=== PATIENT | male | born 1960 | race African-American/Black ===

== ENCOUNTER 2019-11-19 21:08 | Emergency (ER) | payer OTHER ==
[2019-11-19 21:14] VITALS: TEMP 97.9; BMI 25.8
--- NOTE | 2019-11-19 21:28 | PDOC ---
History of Present Illness - General Chief Complaint: Pain Stated Complaint: ABD PAIN Time Seen by Provider: 11/19/19 21:27 History Source: Patient - History of Present Illness Initial Comments: 11/19/19 22:17 Mr. Zaldivar is a 59 y/o man w/no PMH p/w one day of acute abdominal pain radiating to his back. He reports waking up with pain in his lower abdomen, 8/10, constant, worse with po intake, aching pain, radiating to his back. He reports that this is different that other low back pain that he has felt. He reports x3 nbnb vomiting, x3 watery non-bloody diarrhea over the course of the day. He reports drinking approx 3 drinks of alcohol last night. He reports drinking one beer daily. He presented to [facility] today for EtOH detox and was told at that time there were no beds available. Past History - Past Medical History Allergies/Adverse Reactions: Allergies Allergy/AdvReac Type Severity Reaction Status Date / Time No Known Allergies Allergy Verified 11/19/19 21:14 Home Medications: Ambulatory Orders Allopurinol [Zyloprim -] 100 mg PO DAILY 05/14/18 Amlodipine Besylate 5 mg PO DAILY 05/14/18 Atorvastatin Ca [Lipitor] 20 mg PO HS 05/14/18 Cyclobenzaprine HCl [Flexeril 10 mg] 10 mg PO BID PRN 05/14/18 Ergocalciferol (Vitamin D2) [Vitamin D2] 50,000 unit PO Q7D 05/14/18 Ibuprofen [Motrin -] 400 mg PO TID PRN 05/14/18 Meclizine HCl [Antivert -] 25 mg PO TID 05/14/18 Naltrexone HCl 50 mg PO DAILY #8 tablet 05/23/18 Naltrexone HCl 50 mg PO DAILY #14 tablet 08/26/18 Naltrexone HCl 50 mg PO DAILY #30 tablet 09/30/18 Naltrexone HCl [Revia -] 50 mg PO DAILY #14 tablet 05/20/19 Naltrexone HCl 50 mg PO DAILY #14 tablet 06/03/19 Naltrexone HCl [Revia -] 50 mg PO DAILY #30 tablet 06/24/19 Omeprazole 40 mg PO DAILY 14 Days #28 tablet. 11/20/19 Anemia: No Asthma: No Cancer: No Cardiac Disorders: No CVA: No COPD: No CHF: No Dementia: No Diabetes: No GI Disorders: No Disorders: No HTN: No Hypercholesterolemia: No Kidney Stones: No Liver Disease: No Seizures: No Thyroid Disease: No - Surgical History Lung Surgery: Yes (tapped a pleural effusion) - Reproductive History Testicular Surgery: No - Psycho Social/Smoking Cessation Hx Smoking History: Never smoked Have you smoked in the past 12 months: No 'Breaking Loose' booklet given: 11/02/13 Hx Alcohol Use: Yes Drug/Substance Use Hx: Yes Substance Use Type: Alcohol, Cocaine Hx Substance Use Treatment: Yes (detox, rehab) Review of Systems - Review of Systems Able to Perform ROS?: Yes Comments:: 11/19/19 22:26 GENERAL/CONSTITUTIONAL: No fever or chills. No weakness. HEAD, EYES, EARS, NOSE AND THROAT: No change in vision. No ear pain or discharge. No sore throat. CARDIOVASCULAR: No chest pain or shortness of breath RESPIRATORY: No cough, wheezing, or hemoptysis. GASTROINTESTINAL: Nausea, vomiting, diarrhea, abdominal pain. No constipation. GENITOURINARY: No dysuria, frequency, or change in urination. MUSCULOSKELETAL: No joint or muscle swelling or pain. No neck or back pain. SKIN: No rash NEUROLOGIC: No headache, vertigo, loss of consciousness, or change in strength/sensation. ENDOCRINE: No increased thirst. No abnormal weight change HEMATOLOGIC/LYMPHATIC: No anemia, easy bleeding, or history of blood clots. ALLERGIC/IMMUNOLOGIC: No hives or skin allergy. *Physical Exam - Vital Signs Last Vital Signs Temp Pulse Resp BP Pulse Ox 97.9 F 98 H 18 119/83 99 11/19/19 21:10 11/19/19 21:10 11/19/19 21:10 11/19/19 21:10 11/19/19 21:10 - Physical Exam 11/19/19 22:26 GENERAL: Awake, alert, and fully oriented HEAD: No signs of trauma, normocephalic, atraumatic EYES: PERRLA, EOMI, sclera anicteric, conjunctiva clear ENT: Auricles normal inspection, hearing grossly normal, nares patent, oropha rynx clear without exudates. Moist mucosa NECK: Normal ROM, supple, no lymphadenopathy, JVD, or masses LUNGS: No distress, speaks full sentences, clear to auscultation bilaterally HEART: Regular rate and rhythm, normal S1 and S2, no murmurs, rubs or gallops, peripheral pulses normal and equal bilaterally. ABDOMEN: RLQ, RUQ tenderness. Soft, normoactive bowel sounds. No guarding, no rebound. No masses EXTREMITIES : Normal inspection, Normal range of motion, no edema. No clubbing or cyanosis NEUROLOGICAL: Cranial nerves II through XII grossly intact. Normal speech, normal gait, no focal sensorimotor deficits SKIN: Warm, Dry, normal turgor, no rashes or lesions noted Heart Score/ECG Review - ECG Intrepretation Rhythm: Regular Rhythm - [place]: Normal - QRS Measured at (milliseconds): 100 - ST and T Comment:: QTc - 453 - ECG Impressions Normal ECG: Yes Non-specific ST Elevation: No Ischemic Changes: No ED Treatment Course - LABORATORY CBC & Chemistry Diagram: 11/19/19 22:00 11/19/19 22:00 Medical Decision Making - Medical Decision Making 11/19/19 22:27 59M w/no PMH p/w one day of abdominal pain radiating to back alongside N/V/D. Ddx includes pancreatitis given EtOH use, appendicitis, gallbladder pathology. Aortic aneurysm also possible given radiation to back. Plan: CBC CMP Lipase Cardiac Profile EKG CXR Mag Banana bag 1L LR Acetaminophen 1g Morphine 4mg for pain CT abdomen/pelvis w/contrast Dispo: Pending 11/20/19 01:43 Lipase - negative CBC - wnl CMP - AST 92 ALT 63 Troponin - negative Mag - wnl CT - notable for duodenitis. No other acute process. Plan for viscous lidocaine, maalox. Patient tolerating po without difficulty. Plan for discharge with Omeprazole as well as close GI, PCP follow up. Discharge - Discharge Information Problems reviewed: Yes Clinical Impression/Diagnosis: Duodenitis Condition: Stable Disposition: HOME - Admission No - Additional Discharge Information Prescriptions: Omeprazole 40 mg PO DAILY 14 Days #28 tablet. - Follow up/Referral Referrals: Arcadio Zamora [Primary Care Provider] - Vanesa Barry MD [Staff Physician] - - Patient Discharge Instructions Patient Printed Discharge Instructions: DI for Duodenitis Additional Instructions: You were seen in the ER for abdominal pain. Your bloodwork was normal. Your symptoms improved with medication. Your CT scan showed some swelling around the duodenum - the first part of your intestines after your stomach. We are prescribing you a medication called omeprazole to help with stomach acid that can help the symptoms caused by this. Be sure to take this medication as directed, two pills daily for 14 days. We are also giving you follow up with a [employer] (intestine doctor). Be sure to call to make an appointment as soon as possible. Please be sure to follow up with your primary care provider as soon as possible, in the next 2-3 days. There are currently no beds available at the detox facility. If you are interested in detox, try going back first thing in the morning at 7AM when they open. Return to the ER if you develop intracta ble pain, intractable vomiting, chest pain, or are unable to eat due to uncontrollable vomiting. - Post Discharge Activity
[2019-11-19] MEDS ORDERED: LACTATED RINGERS SOLUTION 1000 ML INFUS.BAG IV ONE (21:44)
[2019-11-19] MEDS ORDERED: ACETAMINOPHEN 1000 MG/100 ML VIAL (NON FORMULARY) IVPB ONE (21:45)
[2019-11-19] MEDS ORDERED: FOLIC ACID INJECTION - 1 MG, THIAMINE HCL 100 MG, MULTIVIT INJECTION ADULT 10 ML in SOD... IVPB ONE (21:51)
[2019-11-19] MEDS ORDERED: morphine CARPU-JECT 4 MG/1 ML DISP.SYRIN IVPUSH ONE (21:58)
[2019-11-19] MEDS ORDERED: morphine SULFATE 4 MG/ML VIAL ONE (22:04)
[2019-11-19] MEDS ORDERED: ACETAMINOPHEN INJECTION 100 ML IVPB ONE (22:04)
--- NOTE | 2019-11-19 22:07 | PDOC ---
Documentation entered by Bobby Garcia SCRIBE, acting as scribe for Kerry Nieves DO. Kerry Nieves DO: This documentation has been prepared by the Jose pastor Daniel, SCRIBE, under my direction and personally reviewed by me in its entirety. I confirm that the documentation accurately reflects all work, treatment, procedures, and medical decision making performed by me. Attending Attestation - Resident Resident Name: Eliseo Parrish - ED Attending Attestation I have performed the following: I have examined & evaluated the patient, The case was reviewed & discussed with the resident, I agree w/resident's findings & plan, Exceptions are as noted - HPI HPI: 11/19/19 21:57 The patient is a 59 year old male with no past medical history here today for evaluation of abdominal pain. The patient reports that he has had one day of abdominal pain with associated nausea, 3 episodes of diarrhea, and 3 episodes of vomiting. He initially presented to [facility] for alcohol detox but was sent here due to a lack of beds. Patient denies headache, lightheadedness. Denies fever, chills. Denies chest pain, shortness of breath. Allergies: NKA PCP: Arcadio Zamora - Physicial Exam PE: 11/19/19 21:57 Constitutional: +uncomfortable, appears in pain. Awake, alert, oriented. Head: Normocephalic. Atraumatic Eyes: PERRL. EOMI. Conjunctivae are not pale. ENT: Mucous membranes are moist and intact. Posterior pharynx without exudates or erythema. Uvula midline. Neck: Supple. Full ROM. No lymphadenopathy. Cardiovascular: Regular rate. Regular rhythm. S1, S2 regular. Distal pulses are 2+ and symmetric. Pulmonary/Chest: No evidence of respiratory distress. Clear to auscultation bilaterally No wheezing, rales or rhonchi. Abdominal: +reducible umbilical hernia. +tenderness above the umbilicus across the upper abdomen. Soft and non-distended. No rebound, guarding or rigidity. No organomegaly. No palpable masses. Good bowel sounds. Back: No CVA tenderness. Musculoskeletal: No edema. No cyanosis. No clubbing. Full range of motion in all extremities. Nocalf tenderness. Radial/pedal pulses are intact and 2+ bilaterally Skin: Skin is warm and dry. No petechiae. No purpura. Neurological: Alert and oriented to person, place, and time. Cranial nerves II-XII are grossly intact. Normal speech. Strength is grossly symmetric. No sensory deficits. Psychiatric: Good eye contact. Normal interaction, affect and behavior. - Medical Decision Making 11/19/19 22:05 I, Dr. Kerry Nieves, DO, attest that this document has been prepared under my direction and personally reviewed by me in its entirety. I further attest, that it accurately reflects all work, treatment, procedures and medical decision-making performed by me. a/p: 59yo male with abd pain -pt went to [facility] for detox from etoh, but only drinks about 1 beer a day, yesterday at a [employer] and drank more -abd pain, nausea, 1 episode of loose stool -upper abd pain, no vomiting -hx of hernia repair at the umbilicus - small hernia there -concern for etoh pancreatitis vs etoh gastritis vs biliary colic vs colitis -will send labs, ct abd/pelvis -ivf hydraiton, pain control -will monitor and reassess 11/19/19 23:38 no elevated wbc elevated lft lipase neg pending ct imaging 11/20/19 00:22 CT abdomen pelvis: FINDINGS: There are inflammatory changes of the fat around the proximal duodenum. Proximal duodenal sommers are slightly thickened. This could represent duodenitis or duodenal ulcer disease. Endoscopic evaluation may be helpful. Please note that some of the inflammatory changes are adjacent to the head of the pancreas. Although I believe the inflammation is related to the duodenum, recommend correlation with lipase to exclude associated pancreatitis. Liver is somewhat enlarged. (Liver dome tip not included on the scan). There is a small periumbilical hernia with some omentum but no bowel. No bowel obstruction or inflammation. Left colon diverticulosis. No diverticulitis or colitis. Normal appendix containing some sludge. Prior cholecystectomy. Normal spleen. Normal adrenal glands. Bilateral renal cysts. No acute renal abnormality or urinary tract obstruction. No free intraperitoneal air or free fluid. Enlarged prostate and seminal vesicles. Osseous structures are intact. 11/20/19 00:24 trop neg pt states pain is more tolerable will add gi cocktail 11/20/19 01:08 cxr clear 11/20/19 01:38 pt feeling better tolerated po stable for dc to home with gi follow up Heart Score/ECG Review - ECG Intrepretation Comment:: 11/20/19 00:17 sinus at 61, nl axis, nl interval, t wave inversions v2-4, abnormal ekg
[2019-11-19 22:35] LABS: BASO % 0.8 % (0-2.0); EOS % 0.4 % (0-4.5); HEMATOCRIT 41.8 % (35.4-49); HEMOGLOBIN 14.2 GM/dL (11.7-16.9); LYMPH % 21.4 % (8-40); MCH 28.6 pg (25.7-33.7); MCHC 34.1 g/dl (32.0-35.9); MEAN PLT VOLUME 9.2 fl (7.5-11.1); MONO % 9.2 % (3.8-10.2); NEUT % 68.2 % (42.8-82.8); PLATELET COUNT 420 K/MM3 (134-434); RBC 4.98 M/mm3 (4.00-5.60); RDW 16.2 % (11.9-15.9); WHITE BLOOD COUNT 8.8 K/mm3 (4.0-10.0)
[2019-11-19 23:14] LABS: ALK PHOS 89 U/L (45-117); ANION GAP 6 MMOL/L (8-16); BILIRUBIN,TOTAL 0.9 mg/dL (0.2-1); BLOOD UREA NITROGEN 8.9 mg/dL (7-18); CALCIUM 9.6 mg/dL (8.5-10.1); CHLORIDE 108 mmol/L (98-107); CO2 27 mmol/L (21-32); CREATININE 1.2 mg/dL (0.55-1.3); GLUCOSE,RANDOM 122 mg/dL (74-106); LIPASE 131 U/L (73-393); POTASSIUM 4.8 mmol/L (3.5-5.1); SGOT/AST 92 U/L (15-37); SGPT/ALT 63 U/L (13-61); SODIUM 141 mmol/L (136-145); TOT PROT 7.9 g/dl (6.4-8.2)
[2019-11-20] MEDS ORDERED: MAG HYDROX/AL HYDROX/SIMETH 30 ML UNIT-DOSE CUP PO ONE (00:25)
[2019-11-20] MEDS ORDERED: LIDOCAINE VISCOUS 2% ORAL/TOP 20 ML UNIT-DOSE CUP MM ONE (00:25)
[2019-11-20] MEDS ORDERED: LIDOCAINE VISCOUS 2% ORAL/TOP 20 ML UNIT-DOSE CUP ONE (01:07)
[2019-11-20] MEDS ORDERED: MAG HYDROX/AL HYDROX/SIMETH 30 ML UNIT-DOSE CUP ONE (01:08)
[2019-11-20 02:09] VITALS: BP 120/82; PULSE 90
--- NOTE | 2019-11-20 11:08 | EKG ---
Test Reason : Blood Pressure : / mmHG Vent. Rate : 061 BPM Atrial Rate : 061 BPM P-R Int : 172 ms QRS Dur : 100 ms QT Int : 450 ms P-R-T Axes : 051 019 041 degrees QTc Int : 453 ms NORMAL SINUS RHYTHM NONSPECIFIC T WAVE ABNORMALITY ABNORMAL ECG NO PREVIOUS ECGS AVAILABLE Confirmed by IRENE ROSAS MD ([id number]) on 11/20/2019 11:08:48 AM Referred By: Confirmed By:IRENE ROSAS MD
== END 2019-11-20 02:10 | disposition home or self-care (01) ==
LOC: JER 21:08
PROC: 3E033GC Introduction of Other Therapeutic Substance into Peripheral Vein, Percutaneous Approach (ICD-10-PCS; principal; 2019-11-19)
PROC: 3E033NZ Introduction of Analgesics, Hypnotics, Sedatives into Peripheral Vein, Percutaneous Approach (ICD-10-PCS; 2019-11-19)
DX: K29.80 Duodenitis without bleeding (principal); M54.89 Other dorsalgia; I10 Essential (primary) hypertension; F10.10 Alcohol abuse, uncomplicated
CPT/HCPCS: 36415; 71045-TC-FY; 74177-TC; 80053; 82550; 82553; 83690; 83735; 84484; 85025; 93005; 93010; 96365; 96366; 96375; 99285-25; J0131; J7030; Q9967

== ENCOUNTER 2019-11-20 08:40 | Inpatient (IN) | payer OTHER ==
--- NOTE | 2019-11-20 09:01 | BHS.RME ---
Substance Use & Tx History - Substance Use History Alcohol Substance amount: 4 - 40 oz beers Frequency of use: Daily Substance route: Oral Date of Last Use: 11/19/19 - Last Treatment Where was last treatment: ER (yesterday seen in er after having alcoholic binge at a [employer] party and having abdominal pain. CT of abdomen and one dose of morphine given to him at [facility]. CT showed possible duodenal ulcer and enlarged liver.) Physical/Psych/Mental Status - Behavior General Behavior: Increased activity (restlessness, agitation) Eye Contact: Normal - Cooperativeness Cooperativeness: Cooperative - Thinking Thought Processes: Tight, Logical, Goal Directed Thought content: Future oriented - Physical Health Problems Is patient presently having any pain?: No Does patient presently have any injuries (include location): No Does patient currently have a fever: No Is patient : No CIWA Nausea/Vomitin Muscle Tremors: 2 Anxiety: 4-Mod. Anxious/Guarded Agitation: 3 Paroxysmal Sweats: No Perspiration Orientation: 0-Oriented Tacttile Disturbances: 0-None Auditory Disturbances: 0-None Visual Disturbances: 0-None Headache: 1-Very Mild (moderate withdrawals since been off alcohol for more than 18 hours.) CIWA-Ar Total Score: 16
[2019-11-20 09:40] VITALS: BMI 26.1
--- NOTE | 2019-11-20 10:27 | HP ---
CIWA Score Nausea/Vomitin Muscle Tremors: 2 Anxiety: 4-Mod. Anxious/Guarded Agitation: 3 Paroxysmal Sweats: No Perspiration Orientation: 0-Oriented Tacttile Disturbances: 0-None Auditory Disturbances: 0-None Visual Disturbances: 0-None Headache: 1-Very Mild (moderate withdrawals since been off alcohol for more than 18 hours.) CIWA-Ar Total Score: 16 - Admission Criteria OASAS Guidelines: Admission for Medically Managed Detox: Requires at least one of the followin. CIWA greater than 12 2. Seizures within the past 24 hours 3. Delirium tremens within the past 24 hours 4. Hallucinations within the past 24 hours 5. Acute intervention needed for co occurring medical disorder 6. Acute intervention needed for co occurring psychiatric disorder 7. Severe withdrawal that cannot be handled at a lower level of care (continued vomiting, continued diarrhea, abnormal vital signs) requiring intravenous medication and/or fluids 8. Admitting History and Physical - Admission Chief Complaint: " I want to stop drinking. I want to go to rehab after detox." History of Present Illness: 59 year old male with history of alcohol dependence with withdrawals. He was seen yesterday evening at [facility] but due to the constant nausea, vomitting and diarrhea with abdominal pain, he was sent to [facility] ER. They assessed him and CT of abdomen showed possible duodenal disease/ ulcer and enlarged liver. He was cleared and sent back for detox this morning. He was also given one dose of IV morphine last night which explains his MOP in urine tox. He also in 2002 had a bout pof pleuritis and pleurisy with chest drainage of fluid. PMH: Chronic low back pain from sports trauma, ? Duodenal ulcer/ Enlarged Liver Psurg: None Psych: None He is domiciled in an single occupancy room with drugs in area. He has poor support systems in place but no legal problems. He has already sequelae of chronic alcohol use disorder with possible enlarged liver seen on CT scan yesterday. History Source: Patient Limitations to Obtaining History: No Limitations - Past Medical History Gastrointestinal: Yes: GERD Hepatobiliary: Yes: Other (liver enlargement) - Past Surgical History Past Surgical History: Yes: None - Smoking History Smoking history: Never smoked Have you smoked in the past 12 months: No Aproximately how many cigarettes per day: 0 If you are a former smoker, when did you quit?: 20 yrs ago - Alcohol/Substance Use Hx Alcohol Use: Yes Admission ROS S - HPI Allergies/Adverse Reactions: Allergies Allergy/AdvReac Type Severity Reaction Status Date / Time No Known Allergies Allergy Verified 11/20/19 09:32 Patient History - Patient Medical History Hx Anemia: No Hx Asthma: No Hx Chronic Obstructive Pulmonary Disease (COPD): No Hx Cancer: No Hx Cardiac Disorders: Yes (High cholestrol) Hx Congestive Heart Failure: No Hx Hypertension: Yes Hx Hypercholesterolemia: No Hx Pacemaker: No HX Cerebrovascular Accident: No Hx Seizures: No Hx Dementia: No Hx Diabetes: No Hx Gastrointestinal Disorders: Yes (GERDS) Hx Liver Disease: No Hx Genitourinary Disorders: No Hx Sexually Transmitted Disorders: No Hx Renal Disease (ESRD): No Hx Thyroid Disease: No Hx Human Immunodeficiency Virus (HIV): No Hx Hepatitis C: No Hx Depression: Yes Hx Suicide Attempt: No Hx Bipolar Disorder: No Hx Schizophrenia: No - Patient Surgical History Past Surgical History: Yes Hx Neurologic Surgery: Yes (Vertigo) Hx Cataract Extraction: No Hx Cardiac Surgery: No Hx Lung Surgery: Yes (tapped a pleural effusion) Hx Breast Surgery: No Hx Breast Biopsy: No Hx Abdominal Surgery: No Hx Appendectomy: No Hx Cholecystectomy: No Hx Genitourinary Surgery: No Hx Section: No Hx Orthopedic Surgery: No Anesthesia Reaction: No - PPD History Previous Implant?: Yes Documented Results: Negative w/proof Implanted On Prior [facility] Admission?: Yes Date: 11/04/13 - Smoking Cessation Smoking history: Never smoked Have you smoked in the past 12 months: No Aproximately how many cigarettes per day: 0 If you are a former smoker, when did you quit?: 20 yrs ago Cigars Per Day: 0 Hx Chewing Tobacco Use: No Initiated information on smoking cessation: No - Substances abused Alcohol Substance route: Oral Frequency: Daily Amount used: 40oz amd 6pk beer Age of first use: 14 Date of last use: 11/19/19 Admission Physical Exam S - Vital Signs Vital Signs: Vital Signs - 24 hr 11/20/19 09:37 Temperature 98.0 F Pulse Rate 71 Respiratory 18 Rate Blood Pressure 157/82 - Physical General Appearance: Yes: No Apparent Distress, Nourished, Appropriately Dressed HEENTM: Yes: EOMI, Hearing grossly Normal, Normal ENT Inspection, Normocephalic, Normal Voice, AMITA, Pharynx Normal, Tm's normal Respiratory: Yes: Chest Non-Tender, Lungs Clear, Normal Breath Sounds, No Respiratory Distress, No Accessory Muscle Use Neck: Yes: No masses,lesions,Nodules, Supple, Trachea in good position Breast: Yes: Within Normal Limits Cardiology: Yes: Regular Rhythm, Regular Rate, S1, S2 Abdominal: Yes: Soft, Increased Bowel Sounds, Protuberent, Tenderness, Hepatomegaly (1 fingertip below right costal margin), Other (small umbilical hernia) Back: Yes: Normal Inspection Musculoskeletal: Yes: full range of Motion, Gait Steady, Pelvis Stable Extremities: Yes: Normal Capillary Refill, Normal Inspection, Normal Range of Motion Neurological: Yes: feather cutting machine feeder II-XII NML intact, Fully Oriented, Alert, Motor Strength 5/5, Normal Mood/Affect, Normal Response Integumentary: Yes: Normal Color, Warm - Diagnostic (1) Alcohol dependence with withdrawal Current Visit: Yes Status: Acute (2) Duodenitis Current Visit: Yes Status: Acute (3) HTN (hypertension) Current Visit: Yes Status: Acute Qualifiers: Comment: one meds - sees primary (4) Chronic LBP Current Visit: Yes Status: Chronic Qualifiers: Back pain laterality: unspecified Comment: managed by pcp Screened but not Admitted - Documentation of Visit Screened but not Admitted: No Breathalyzer - Breathalyzer Breathalyzer: 0 Urine Drug Screen - Test Device Lot number: [id number] Expiration date: 08/15/21 - Control Is test valid?: Yes - Results Drug screen NEGATIVE: No Urine drug screen results: MOP-Opiates Inpatient Rehab Admission - Rehab Decision to Admit Inpatient rehab admission?: No
[2019-11-20] MEDS ORDERED: MAGNESIUM HYDROX 2400MG/30ML ORAL SUSPENSION 30 ML CUP PO PRN (10:33)
[2019-11-20] MEDS ORDERED: MAG HYDROX/AL HYDROX/SIMETH 30 ML UNIT-DOSE CUP PO PRN (10:33)
[2019-11-20] MEDS ORDERED: ACETAMINOPHEN 325 MG TABLET (FP) PO PRN ×2 (10:33)
[2019-11-20] MEDS ORDERED: MENTHOL/PHENOL 1 EACH UD MM PRN (10:33)
[2019-11-20] MEDS ORDERED: NICOTINE POLACRILEX 2 MG GUM BUC PRN (10:33)
[2019-11-20] MEDS ORDERED: MAGNESIUM CITRATE 300 ML BOTTLE PO PRN (10:33)
[2019-11-20] MEDS ORDERED: chlordiazePOXIDE HCL 25 MG CAPSULE PO PRN (10:33)
[2019-11-20] MEDS ORDERED: ERGOCALCIFEROL (VIT D2) 50,000 UNIT (1.25 MG) CAPSULE PO SCH (12:05)
[2019-11-20] MEDS ORDERED: ONDANSETRON *ODT* 4 MG TABLET SL ONE (12:05)
[2019-11-20] MEDS: NICOTINE 7 MG/24 HOURS TOPICAL PATCH TD SCH (12:27)
[2019-11-20] MEDS: chlordiazePOXIDE HCL 25 MG CAPSULE PO SCH ×3 (12:27→22:12)
[2019-11-20] MEDS: PANTOPRAZOLE 40 MG TABLET PO SCH (12:27)
[2019-11-20] MEDS: amLODIPine BESYLATE 5 MG TABLET (FP) PO SCH (12:27)
[2019-11-20] MEDS: PRENATAL VITAMINS W/ FOLIC ACID TABLET (FP) PO SCH (12:27)
[2019-11-20] MEDS ORDERED: BISMUTH SUBSALICYLATE 262 MG/15 ML BTL PO PRN (12:49)
[2019-11-20] MEDS: hydrOXYzine PAMOATE 25 MG CAPSULE (FP) PO SCH ×3 (15:09→22:13)
[2019-11-20 15:24] LABS: HEMOGLOBIN 14.1 GM/dL (11.7-16.9); MCH 28.7 pg (25.7-33.7); MCHC 32.8 g/dl (32.0-35.9); MEAN CELL VOLUME 87.4 fl (80-96); MEAN PLT VOLUME 9.5 fl (7.5-11.1); PLATELET COUNT 319 K/MM3 (134-434); RBC 4.92 M/mm3 (4.00-5.60); RDW 16.3 % (11.9-15.9); WHITE BLOOD COUNT 7.3 K/mm3 (4.0-10.0)
[2019-11-20 15:36] LABS: ALBUMIN 3.7 g/dl (3.4-5.0); BILIRUBIN,TOTAL 0.8 mg/dL (0.2-1); BLOOD UREA NITROGEN 7.2 mg/dL (7-18); CALCIUM 8.6 mg/dL (8.5-10.1); CREATININE 0.9 mg/dL (0.55-1.3); TOT PROT 7.2 g/dl (6.4-8.2)
[2019-11-20 15:37] LABS: POTASSIUM 3.6 mmol/L (3.5-5.1)
[2019-11-20] MEDS: THIAMINE HCL 100 MG TABLET (FP) PO SCH (22:12)
[2019-11-20] MEDS: ATORVASTATIN CA 20 MG TABLET (FP) PO SCH (22:12)
[2019-11-20] MEDS: MELATONIN 5 MG TABLETS PO SCH (22:13)
[2019-11-21] MEDS: hydrOXYzine PAMOATE 25 MG CAPSULE (FP) PO SCH ×5 (06:51→22:32)
[2019-11-21] MEDS: chlordiazePOXIDE HCL 25 MG CAPSULE PO SCH ×4 (06:51→22:30)
[2019-11-21] MEDS: PANTOPRAZOLE 40 MG TABLET PO SCH (10:22)
[2019-11-21] MEDS: PRENATAL VITAMINS W/ FOLIC ACID TABLET (FP) PO SCH (10:22)
[2019-11-21] MEDS: NICOTINE 7 MG/24 HOURS TOPICAL PATCH TD SCH (10:22)
[2019-11-21] MEDS: amLODIPine BESYLATE 5 MG TABLET (FP) PO SCH (10:22)
--- NOTE | 2019-11-21 12:02 | PN ---
S CIWA - CIWA Score Nausea/Vomitin Muscle Tremors: 3 Anxiety: 3 Agitation: 3 Paroxysmal Sweats: No Perspiration Orientation: 0-Oriented Tacttile Disturbances: 1-Very Mild Itch/Numbness Auditory Disturbances: 0-None Visual Disturbances: 0-None Headache: 1-Very Mild CIWA-Ar Total Score: 13 BHS Progress Note (SOAP) Subjective: alert,irritable,anxious,interrupted sleep,tremor,tremor,nausea Objective: 11/21/19 12:00 Vital Signs Temperature 98.7 F 11/21/19 09:29 Pulse Rate 104 H 11/21/19 09:29 Respiratory Rate 19 11/21/19 09:29 Blood Pressure 157/99 11/21/19 09:29 O2 Sat by Pulse Oximetry (%) Laboratory Last Values WBC 7.3 K/mm3 (4.0-10.0) 11/20/19 10:55 RBC 4.92 M/mm3 (4.00-5.60) 11/20/19 10:55 Hgb 14.1 GM/dL (11.7-16.9) 11/20/19 10:55 Hct 43.0 % (35.4-49) 11/20/19 10:55 MCV 87.4 fl (80-96) 11/20/19 10:55 MCH 28.7 pg (25.7-33.7) 11/20/19 10:55 MCHC 32.8 g/dl (32.0-35.9) 11/20/19 10:55 RDW 16.3 % (11.9-15.9) H 11/20/19 10:55 Plt Count 319 K/MM3 (134-434) D 11/20/19 10:55 MPV 9.5 fl (7.5-11.1) 11/20/19 10:55 Sodium 144 mmol/L (136-145) 11/20/19 10:55 Potassium 3.6 mmol/L (3.5-5.1) 11/20/19 10:55 Chloride 109 mmol/L (98-107) H 11/20/19 10:55 Carbon Dioxide 24 mmol/L (21-32) 11/20/19 10:55 Anion Gap 12 MMOL/L (8-16) 11/20/19 10:55 BUN 7.2 mg/dL (7-18) 11/20/19 10:55 Creatinine 0.9 mg/dL (0.55-1.3) 11/20/19 10:55 Est GFR (CKD-EPI)AfAm 107.22 11/20/19 10:55 Est GFR (CKD-EPI)NonAf 92.51 11/20/19 10:55 Random Glucose 66 mg/dL (74-106) L 11/20/19 10:55 Calcium 8.6 mg/dL (8.5-10.1) 11/20/19 10:55 Total Bilirubin 0.8 mg/dL (0.2-1) 11/20/19 10:55 AST 62 U/L (15-37) H 11/20/19 10:55 ALT 57 U/L (13-61) 11/20/19 10:55 Alkaline Phosphatase 83 U/L (45-117) 11/20/19 10:55 Total Protein 7.2 g/dl (6.4-8.2) 11/20/19 10:55 Albumin 3.7 g/dl (3.4-5.0) 11/20/19 10:55 RPR Titer Nonreactive (NONREACTIVE) 11/20/19 10:55 Assessment: 11/21/19 12:00 withdrawal symptom Plan: continue detox librium regimen,bgm ,initial glucose is 60mg
[2019-11-21] MEDS: ATORVASTATIN CA 20 MG TABLET (FP) PO SCH (22:30)
[2019-11-21] MEDS: THIAMINE HCL 100 MG TABLET (FP) PO SCH (22:30)
[2019-11-21] MEDS: MELATONIN 5 MG TABLETS PO SCH (22:31)
[2019-11-22] MEDS: hydrOXYzine PAMOATE 25 MG CAPSULE (FP) PO SCH ×5 (06:26→22:38)
[2019-11-22] MEDS: chlordiazePOXIDE HCL 25 MG CAPSULE PO SCH ×4 (06:26→22:37)
[2019-11-22] MEDS: PANTOPRAZOLE 40 MG TABLET PO SCH (10:37)
[2019-11-22] MEDS: PRENATAL VITAMINS W/ FOLIC ACID TABLET (FP) PO SCH (10:37)
[2019-11-22] MEDS: NICOTINE 7 MG/24 HOURS TOPICAL PATCH TD SCH (10:37)
[2019-11-22] MEDS: amLODIPine BESYLATE 5 MG TABLET (FP) PO SCH (10:37)
--- NOTE | 2019-11-22 11:57 | PN ---
S CIWA - CIWA Score Nausea/Vomitin-Mild Nausea/No Vomiting Muscle Tremors: 2 Anxiety: 1-Mildly Anxious Agitation: 2 Paroxysmal Sweats: 2 Orientation: 0-Oriented Tacttile Disturbances: 0-None Auditory Disturbances: 0-None Visual Disturbances: 0-None Headache: 0-None Present CIWA-Ar Total Score: 8 BHS Progress Note (SOAP) Subjective: restless sweats interrupted sleep nausea Objective: 11/22/19 11:56 Vital Signs Temperature 99.1 F 11/22/19 09:27 Pulse Rate 101 H 11/22/19 09:27 Respiratory Rate 20 11/22/19 09:27 Blood Pressure 136/74 11/22/19 09:27 O2 Sat by Pulse Oximetry (%) Laboratory Tests 11/20/19 11/20/19 11/20/19 10:55 10:55 10:55 WBC 7.3 RBC 4.92 Hgb 14.1 Hct 43.0 MCV 87.4 MCH 28.7 MCHC 32.8 RDW 16.3 H Plt Count 319 D MPV 9.5 Sodium 144 Potassium 3.6 Chloride 109 H Carbon Dioxide 24 Anion Gap 12 BUN 7.2 Creatinine 0.9 Est GFR (CKD-EPI)AfAm 107.22 Est GFR (CKD-EPI)NonAf 92.51 POC Glucometer Random Glucose 66 L Calcium 8.6 Total Bilirubin 0.8 AST 62 H ALT 57 Alkaline Phosphatase 83 Total Protein 7.2 Albumin 3.7 RPR Titer Nonreactive 11/22/19 06:28 WBC RBC Hgb Hct MCV MCH MCHC RDW Plt Count MPV Sodium Potassium Chloride Carbon Dioxide Anion Gap BUN Creatinine Est GFR (CKD-EPI)AfAm Est GFR (CKD-EPI)NonAf POC Glucometer 133 Random Glucose Calcium Total Bilirubin AST ALT Alkaline Phosphatase Total Protein Albumin RPR Titer aaox3 ambulating no acute distress Assessment: 11/22/19 11:57 withdrawals Plan: continue detox increase fluids zofran prn
[2019-11-22] MEDS ORDERED: ONDANSETRON *ODT* 4 MG TABLET SL PRN (14:20)
[2019-11-22] MEDS: METHOCARBAMOL 500 MG TABLET PO PRN (21:40)
[2019-11-22] MEDS: IBUPROFEN 400 MG TABLET (FP) PO PRN (21:40)
[2019-11-22] MEDS: MELATONIN 5 MG TABLETS PO SCH (22:37)
[2019-11-22] MEDS: ATORVASTATIN CA 20 MG TABLET (FP) PO SCH (22:37)
[2019-11-22] MEDS: THIAMINE HCL 100 MG TABLET (FP) PO SCH (22:38)
[2019-11-23] MEDS ORDERED: chlordiazePOXIDE HCL 10 MG CAPSULE PO PRN
[2019-11-23] MEDS: METHOCARBAMOL 500 MG TABLET PO PRN (05:57)
[2019-11-23] MEDS: chlordiazePOXIDE HCL 10 MG CAPSULE PO SCH ×4 (05:57→22:14)
[2019-11-23] MEDS: hydrOXYzine PAMOATE 25 MG CAPSULE (FP) PO SCH ×5 (05:57→22:15)
[2019-11-23] MEDS: IBUPROFEN 400 MG TABLET (FP) PO PRN ×2 (05:57→16:16)
[2019-11-23] MEDS: amLODIPine BESYLATE 5 MG TABLET (FP) PO SCH (10:31)
[2019-11-23] MEDS: NICOTINE 7 MG/24 HOURS TOPICAL PATCH TD SCH (10:31)
[2019-11-23] MEDS: PRENATAL VITAMINS W/ FOLIC ACID TABLET (FP) PO SCH (10:31)
[2019-11-23] MEDS: PANTOPRAZOLE 40 MG TABLET PO SCH (10:31)
--- NOTE | 2019-11-23 10:48 | PN ---
S CIWA - CIWA Score Nausea/Vomitin-Mild Nausea/No Vomiting Muscle Tremors: 2 Anxiety: 2 Agitation: 2 Paroxysmal Sweats: No Perspiration Orientation: 0-Oriented Tacttile Disturbances: 1-Very Mild Itch/Numbness Auditory Disturbances: 0-None Visual Disturbances: 0-None Headache: 1-Very Mild CIWA-Ar Total Score: 9 BHS Progress Note (SOAP) Subjective: alert,irritable,anxious,interrupted sleep,pain in the body Objective: 11/23/19 10:47 Vital Signs Temperature 97.7 F 11/23/19 08:38 Pulse Rate 93 H 11/23/19 08:38 Respiratory Rate 18 11/23/19 08:38 Blood Pressure 133/57 L 11/23/19 08:38 O2 Sat by Pulse Oximetry (%) Assessment: 11/23/19 10:48 withdrawal symptom Plan: continue detox librium regimen
[2019-11-23] MEDS: MELATONIN 5 MG TABLETS PO SCH (22:14)
[2019-11-23] MEDS: THIAMINE HCL 100 MG TABLET (FP) PO SCH (22:14)
[2019-11-23] MEDS: ATORVASTATIN CA 20 MG TABLET (FP) PO SCH (22:14)
[2019-11-24] MEDS: hydrOXYzine PAMOATE 25 MG CAPSULE (FP) PO SCH ×5 (05:35→21:28)
[2019-11-24] MEDS: chlordiazePOXIDE HCL 10 MG CAPSULE PO SCH ×2 (05:35→17:29)
[2019-11-24] MEDS: METHOCARBAMOL 500 MG TABLET PO PRN ×2 (05:35→17:29)
[2019-11-24] MEDS: IBUPROFEN 400 MG TABLET (FP) PO PRN ×2 (05:35→17:29)
[2019-11-24] MEDS: amLODIPine BESYLATE 5 MG TABLET (FP) PO SCH (10:16)
[2019-11-24] MEDS: PRENATAL VITAMINS W/ FOLIC ACID TABLET (FP) PO SCH (10:16)
[2019-11-24] MEDS: NICOTINE 7 MG/24 HOURS TOPICAL PATCH TD SCH (10:16)
[2019-11-24] MEDS: PANTOPRAZOLE 40 MG TABLET PO SCH (10:16)
--- NOTE | 2019-11-24 11:23 | PN ---
[facility] CIWA - CIWA Score Nausea/Vomitin-Mild Nausea/No Vomiting Muscle Tremors: 2 Anxiety: 2 Agitation: 2 Paroxysmal Sweats: No Perspiration Orientation: 0-Oriented Tacttile Disturbances: 0-None Auditory Disturbances: 0-None Visual Disturbances: 0-None Headache: 0-None Present CIWA-Ar Total Score: 7 S Progress Note (SOAP) Subjective: alert,irritable,anxious,interrupted sleep Objective: 11/24/19 11:22 Vital Signs Temperature 98.2 F 11/24/19 08:47 Pulse Rate 92 H 11/24/19 08:47 Respiratory Rate 18 11/24/19 08:47 Blood Pressure 134/72 11/24/19 08:47 O2 Sat by Pulse Oximetry (%) 11/24/19 11:22 Assessment: 11/24/19 11:22 withdrawal symptom Plan: continue detoxlibrium regimen,discharge in am
[2019-11-24] MEDS: THIAMINE HCL 100 MG TABLET (FP) PO SCH (21:28)
[2019-11-24] MEDS: ATORVASTATIN CA 20 MG TABLET (FP) PO SCH (21:28)
[2019-11-24] MEDS: MELATONIN 5 MG TABLETS PO SCH (21:40)
[2019-11-25] MEDS ORDERED: chlordiazePOXIDE HCL 10 MG CAPSULE PO ONE (05:00)
[2019-11-25] MEDS: hydrOXYzine PAMOATE 25 MG CAPSULE (FP) PO SCH ×3 (05:54→14:03)
--- NOTE | 2019-11-25 08:25 | DS ---
[facility] Detox Discharge Summary Admission Date: 11/20/19 Discharge Date: 11/25/19 - History Present History: Alcohol Dependence - Physical Exam Results Vital Signs: Vital Signs Temperature 97.7 F 11/25/19 05:35 Pulse Rate 88 11/25/19 05:35 Respiratory Rate 18 11/25/19 05:35 Blood Pressure 137/78 11/25/19 05:35 O2 Sat by Pulse Oximetry (%) Pertinent Admission Physical Exam Findings: Vital Signs Temperature 97.7 F 11/25/19 05:35 Pulse Rate 88 11/25/19 05:35 Respiratory Rate 18 11/25/19 05:35 Blood Pressure 137/78 11/25/19 05:35 O2 Sat by Pulse Oximetry (%) Laboratory Tests 11/20/19 11/20/19 11/20/19 10:55 10:55 10:55 WBC 7.3 RBC 4.92 Hgb 14.1 Hct 43.0 MCV 87.4 MCH 28.7 MCHC 32.8 RDW 16.3 H Plt Count 319 D MPV 9.5 Sodium 144 Potassium 3.6 Chloride 109 H Carbon Dioxide 24 Anion Gap 12 BUN 7.2 Creatinine 0.9 Est GFR (CKD-EPI)AfAm 107.22 Est GFR (CKD-EPI)NonAf 92.51 POC Glucometer Random Glucose 66 L Calcium 8.6 Total Bilirubin 0.8 AST 62 H ALT 57 Alkaline Phosphatase 83 Total Protein 7.2 Albumin 3.7 RPR Titer Nonreactive T.pallidum Ab Interpret 11/20/19 11/22/19 10:55 06:28 WBC RBC Hgb Hct MCV MCH MCHC RDW Plt Count MPV Sodium Potassium Chloride Carbon Dioxide Anion Gap BUN Creatinine Est GFR (CKD-EPI)AfAm Est GFR (CKD-EPI)NonAf POC Glucometer 133 Random Glucose Calcium Total Bilirubin AST ALT Alkaline Phosphatase Total Protein Albumin RPR Titer T.pallidum Ab Interpret Cancelled aaox3 ambulating no acute distress lungs CTA - Treatment Hospital Course: Detox Protocol Followed, Detoxed Safely, Responded well, Discharged Condition Good, Rehab Referral Accepted - Medication Discharge Medications: Ambulatory Orders Amlodipine Besylate 5 mg PO DAILY 05/14/18 Atorvastatin Ca [Lipitor] 20 mg PO HS 05/14/18 Cyclobenzaprine HCl [Flexeril 10 mg] 10 mg PO BID PRN 05/14/18 Ergocalciferol (Vitamin D2) [Vitamin D2] 50,000 unit PO Q7D 05/14/18 Ibuprofen [Motrin -] 400 mg PO TID PRN 05/14/18 Meclizine HCl [Antivert -] 25 mg PO TID PRN 05/14/18 Omeprazole 40 mg PO DAILY 14 Days #28 tablet. 11/20/19 - Diagnosis (1) Alcohol dependence with withdrawal Current Visit: Yes Status: Chronic Qualifiers: Complication of substance-induced condition: uncomplicated Qualified Code(s): F10.230 - Alcohol dependence with withdrawal, uncomplicated (2) Duodenitis Current Visit: Yes Status: Acute (3) HTN (hypertension) Current Visit: Yes Status: Chronic Qualifiers: Hypertension type: essential hypertension (4) Chronic LBP Current Visit: Yes Status: Chronic Qualifiers: Back pain laterality: unspecified (5) Gout Current Visit: No Status: Resolved Qualifiers: Gout site: unspecified site - AMA Did Patient Leave Against Medical Advice: No
[2019-11-25 10:06] VITALS: BP 119/72; PULSE 112; TEMP 97.1
[2019-11-25] MEDS: NICOTINE 7 MG/24 HOURS TOPICAL PATCH TD SCH (10:40)
[2019-11-25] MEDS: amLODIPine BESYLATE 5 MG TABLET (FP) PO SCH (10:41)
[2019-11-25] MEDS: PRENATAL VITAMINS W/ FOLIC ACID TABLET (FP) PO SCH (10:41)
[2019-11-25] MEDS: METHOCARBAMOL 500 MG TABLET PO PRN (10:41)
[2019-11-25] MEDS: PANTOPRAZOLE 40 MG TABLET PO SCH (10:41)
== END 2019-11-25 14:27 | disposition other institution (70) | DRG 775 ==
LOC: YASAS 08:40 → Y6N 10:37
PROVIDERS: ADMIT Allergy & Immunology; ATTEND Allergy & Immunology
PROC: HZ2ZZZZ Detoxification Services for Substance Abuse Treatment (ICD-10-PCS; principal; 2019-11-20)
DX: F10.230 Alcohol dependence with withdrawal, uncomplicated (principal); I10 Essential (primary) hypertension; K29.80 Duodenitis without bleeding; M54.5 Low back pain; G89.29 Other chronic pain; K21.9 Gastro-esophageal reflux disease without esophagitis
CPT/HCPCS: 36415; 80053; 82962; 85027; 86593

== ENCOUNTER 2019-11-25 15:00 | Inpatient (IN) | payer OTHER ==
[2019-11-25] MEDS ORDERED: NICOTINE POLACRILEX 2 MG GUM BUC PRN (15:59)
[2019-11-25] MEDS ORDERED: MAGNESIUM CITRATE 300 ML BOTTLE PO PRN (15:59)
[2019-11-25] MEDS ORDERED: MAGNESIUM HYDROX 2400MG/30ML ORAL SUSPENSION 30 ML CUP PO PRN (15:59)
[2019-11-25] MEDS ORDERED: MENTHOL/PHENOL 1 EACH UD MM PRN (15:59)
[2019-11-25] MEDS ORDERED: LOPERAMIDE HCL 2 MG CAPSULE PO PRN (15:59)
[2019-11-25] MEDS ORDERED: P-EPHED 60MG/TRIPROLIDI 2.5MG TABLET PO PRN (15:59)
[2019-11-25] MEDS ORDERED: MAG HYDROX/AL HYDROX/SIMETH 30 ML UNIT-DOSE CUP PO PRN (15:59)
--- NOTE | 2019-11-25 15:59 | HP ---
[facility] Rehab Assess/Revision - Admission History Admitted to Rehab from: [address] Date of Admission to Rehab: 11/25/19 - Findings Detox History & Physical reviewed: Yes Concur with findings: Yes Comments/Additional Findings: Pt is a 59 y/o male with a hx of alcohol dep admitted to rehab from [address] [place] [address] detox. PMHx:HTN,GERD,HLD,Pleural effusion. Psych hx:Depression. Pt reports he has primary care with dr. vasquez on [place], [place]. Inpatient Rehab Admission - Rehab Decision to Admit Inpatient rehab admission?: Yes - Initial Determination Are CD services needed?: Yes Free of communicable disease: Yes Not in need of hospitalization: Yes - Rehab Admission Criteria Previous failed treatment: Yes Poor recovery environment: Yes Comorbidities: Yes Lacks judgement: Yes Patient is meeting Inpatient Rehab admission criteria:: Yes
[2019-11-25] MEDS: MELATONIN 5 MG TABLETS PO SCH (21:26)
[2019-11-25] MEDS: THIAMINE HCL 100 MG TABLET (FP) PO SCH (21:26)
[2019-11-25] MEDS: ATORVASTATIN CA 20 MG TABLET (FP) PO SCH (21:26)
[2019-11-25] MEDS: METHOCARBAMOL 500 MG TABLET PO PRN (21:26)
[2019-11-25] MEDS: IBUPROFEN 400 MG TABLET (FP) PO PRN (21:27)
[2019-11-26] MEDS ORDERED: NICOTINE 7 MG/24 HOURS TOPICAL PATCH TD SCH (10:00)
[2019-11-26] MEDS: PRENATAL VITAMINS W/ FOLIC ACID TABLET (FP) PO SCH (10:35)
[2019-11-26] MEDS: amLODIPine BESYLATE 5 MG TABLET (FP) PO SCH (10:35)
[2019-11-26] MEDS: ACETAMINOPHEN 325 MG TABLET (FP) PO PRN (10:37)
[2019-11-26] MEDS: METHOCARBAMOL 500 MG TABLET PO PRN ×2 (10:37→21:44)
[2019-11-26] MEDS: THIAMINE HCL 100 MG TABLET (FP) PO SCH (21:42)
[2019-11-26] MEDS: MELATONIN 5 MG TABLETS PO SCH (21:42)
[2019-11-26] MEDS: ATORVASTATIN CA 20 MG TABLET (FP) PO SCH (21:42)
[2019-11-26] MEDS: IBUPROFEN 400 MG TABLET (FP) PO PRN (21:44)
[2019-11-27] MEDS: METHOCARBAMOL 500 MG TABLET PO PRN ×2 (06:45→21:30)
[2019-11-27] MEDS: IBUPROFEN 400 MG TABLET (FP) PO PRN ×2 (06:45→21:31)
[2019-11-27] MEDS: amLODIPine BESYLATE 5 MG TABLET (FP) PO SCH (10:47)
[2019-11-27] MEDS: PRENATAL VITAMINS W/ FOLIC ACID TABLET (FP) PO SCH (10:47)
[2019-11-27] MEDS: ACETAMINOPHEN 325 MG TABLET (FP) PO PRN (10:48)
--- NOTE | 2019-11-27 15:11 | CONSULT ---
[facility] Psychiatric Consult - Data Date of interview: 11/27/19 Admission source: Transfer from [address] [place] [address]. Identifying data: Revisit to [facility] and admission to [address] for this 59 y/o AA male transitioning to rehabilitative care (completed detoxification at [address] [place] [address]) to safeguard sobriety + address co-morbid issues of mood disorder and insomnia. Patient is single, father of two, domiciled and currently employed. Substance Abuse History: Discussed with thepatient. MERLENE profile as follows : Smoking history: Never smoked. Have you smoked in the past 12 months: No. Aproximately how many cigarettes per day: 0. If you are a former smoker, when did you quit?: 20 yrs ago. Cigars Per Day: 0. Hx Chewing Tobacco Use: No. Initiated information on smoking cessation: No. - Substances abused. Alcohol. Substance route: Oral. Frequency: Daily. Amount used: 40oz amd 6pk beer. Age of first use: 14. Date of last use: 11/19/19 Medical History: Medical history is remarkable for dyslipidemia, GERD and antec edent of pleural effusion (treated). Psychiatric History: Patient denies history of psychiatric hospitalizations. Admits to brief psychiatric outpatient follow-up in 2017 at a mental health clinic in [place], [place]. Mr Zaldivar indicates that he was prescribed " a green pill for depression." Name not recalled. Anyhow, the patient dropped out of psychiatric care, got discharged from that clinic and resumed OPD care at the [facility] program in [place], [place]. Diagnosed with MDD but off medication since 2017. Patient denies history of suicide attempts. Physical/Sexual Abuse/Trauma History: Patient denies history of abuse. Stressors : strained relations with daughter, medical illness of grandson, loneliness and addiction to alcohol. Additional Comment: Urine drug screen results: MOP-Opiates. Noted. Mental Status Exam - Mental Status Exam Alert and Oriented to: Time, Place, Person Cognitive Function: Good Patient Appearance: Well Groomed (short stature, appearing his stated age) Mood: Hopeful, Euthymic Affect: Appropriate, Normal Range Patient Behavior: Appropriate, Cooperative Speech Pattern: Clear, Appropriate Voice Loudness: Normal Thought Process: Intact, Goal Oriented Thought Disorder: Not Present Hallucinations: Denies Suicidal Ideation: Denies Homicidal Ideation: Denies Insight/Judgement: Fair Sleep: Poorly, Difficulty falling asleep Appetite: Good Gait/Station: Normal Psychiatric Findings - Problem List ([place] 1, 2,3) (1) Alcohol use disorder Current Visit: Yes Status: Chronic (2) Substance induced mood disorder Current Visit: Yes Status: Chronic (3) History of depression Current Visit: Yes Status: Chronic Comment: Currently in OPD follow-up at [facility]. (4) Insomnia Current Visit: Yes Status: Chronic - Initial Treatment Plan Initial Treatment Plan: Psychoeducation. Sleep hygiene. Rehabilitation initiated : psychotherapy (supportive, group, individual, cognitive, recreational) + AA meetings + ETOH-MAT services (discussed benefits of naltrexone/vivitrol or acamprosate) + motivational counseling + review of antidepressant medications (declined by patient at this time). Observation.
[2019-11-27] MEDS: THIAMINE HCL 100 MG TABLET (FP) PO SCH (21:30)
[2019-11-27] MEDS: MELATONIN 5 MG TABLETS PO SCH (21:30)
[2019-11-27] MEDS: ATORVASTATIN CA 20 MG TABLET (FP) PO SCH (21:32)
[2019-11-28] MEDS: amLODIPine BESYLATE 5 MG TABLET (FP) PO SCH (10:32)
[2019-11-28] MEDS: PRENATAL VITAMINS W/ FOLIC ACID TABLET (FP) PO SCH (10:32)
[2019-11-28] MEDS: MELATONIN 5 MG TABLETS PO SCH (21:32)
[2019-11-28] MEDS: IBUPROFEN 400 MG TABLET (FP) PO PRN (21:33)
[2019-11-28] MEDS: THIAMINE HCL 100 MG TABLET (FP) PO SCH (21:33)
[2019-11-28] MEDS: METHOCARBAMOL 500 MG TABLET PO PRN (21:33)
[2019-11-28] MEDS: ATORVASTATIN CA 20 MG TABLET (FP) PO SCH (21:33)
[2019-11-28] MEDS: hydrOXYzine PAMOATE 25 MG CAPSULE (FP) PO PRN (21:33)
[2019-11-29] MEDS: amLODIPine BESYLATE 5 MG TABLET (FP) PO SCH (10:00)
[2019-11-29] MEDS: PRENATAL VITAMINS W/ FOLIC ACID TABLET (FP) PO SCH (10:00)
[2019-11-29] MEDS: MELATONIN 5 MG TABLETS PO SCH (21:34)
[2019-11-29] MEDS: ATORVASTATIN CA 20 MG TABLET (FP) PO SCH (21:34)
[2019-11-29] MEDS: THIAMINE HCL 100 MG TABLET (FP) PO SCH (21:34)
[2019-11-29] MEDS: METHOCARBAMOL 500 MG TABLET PO PRN (21:34)
[2019-11-29] MEDS: IBUPROFEN 400 MG TABLET (FP) PO PRN (21:34)
[2019-11-29] MEDS: guaiFENesin 200 MG/10 ML 10 ML UNIT-DOSE CUPS PO PRN (21:35)
[2019-11-30] MEDS: amLODIPine BESYLATE 5 MG TABLET (FP) PO SCH (09:30)
[2019-11-30] MEDS: PRENATAL VITAMINS W/ FOLIC ACID TABLET (FP) PO SCH (09:30)
[2019-11-30] MEDS: METHOCARBAMOL 500 MG TABLET PO PRN ×2 (09:31→21:55)
[2019-11-30] MEDS: IBUPROFEN 400 MG TABLET (FP) PO PRN (09:32)
[2019-11-30] MEDS: ATORVASTATIN CA 20 MG TABLET (FP) PO SCH (21:54)
[2019-11-30] MEDS: MELATONIN 5 MG TABLETS PO SCH (21:54)
[2019-11-30] MEDS: THIAMINE HCL 100 MG TABLET (FP) PO SCH (21:54)
[2019-11-30] MEDS: guaiFENesin 200 MG/10 ML 10 ML UNIT-DOSE CUPS PO PRN (21:54)
[2019-11-30] MEDS: ACETAMINOPHEN 325 MG TABLET (FP) PO PRN (21:56)
[2019-12-01] MEDS: PRENATAL VITAMINS W/ FOLIC ACID TABLET (FP) PO SCH (10:42)
[2019-12-01] MEDS: amLODIPine BESYLATE 5 MG TABLET (FP) PO SCH (10:42)
[2019-12-01] MEDS: IBUPROFEN 400 MG TABLET (FP) PO PRN ×2 (10:44→21:32)
[2019-12-01] MEDS: METHOCARBAMOL 500 MG TABLET PO PRN ×2 (10:44→21:32)
[2019-12-01] MEDS ORDERED: PANTOPRAZOLE 40 MG TABLET PO ONE (15:14)
--- NOTE | 2019-12-01 15:19 | PN ---
[facility] Progress Note Note: Pt reports cough at night when sleeping. Reports hx of GERD and takes Omeprazole at home. Vital Signs (72 hours) 12/01/19 10:00 Temperature Pulse Rate 98 H Respiratory Rate Blood Pressure 125/67 O2 Sat by Pulse Oximetry (%) Alert o x 3 nad oob ambulating with steady gait Heent:Normocephalic,eomi,chel,throat, no redness or swelling. A/P r/o Post nasal drip Hx GERD D/w pt will Restart PPI Protonix 40 mg po daily.
[2019-12-01] MEDS: guaiFENesin 200 MG/10 ML 10 ML UNIT-DOSE CUPS PO PRN (20:22)
[2019-12-01] MEDS: ATORVASTATIN CA 20 MG TABLET (FP) PO SCH (21:28)
[2019-12-01] MEDS: MELATONIN 5 MG TABLETS PO SCH (21:29)
[2019-12-01] MEDS: THIAMINE HCL 100 MG TABLET (FP) PO SCH (21:29)
[2019-12-01] MEDS: hydrOXYzine PAMOATE 25 MG CAPSULE (FP) PO PRN (21:31)
[2019-12-02] MEDS: guaiFENesin 200 MG/10 ML 10 ML UNIT-DOSE CUPS PO PRN ×3 (04:40→21:45)
[2019-12-02] MEDS: IBUPROFEN 400 MG TABLET (FP) PO PRN ×2 (07:09→21:42)
[2019-12-02] MEDS: METHOCARBAMOL 500 MG TABLET PO PRN ×2 (07:09→21:42)
--- NOTE | 2019-12-02 08:40 | PN ---
Psychiatric Progress Note Vital Signs: Vital Signs Period Temp Pulse Resp BP Sys/Coe Pulse Ox Last 24 Hr 99.1 F 98-115 18-18 125-131/67-72 95 Date of Session: 12/02/19 Chief Complaint:: " I'm not sleeping at all. I just need a medication to sleep." HPI: Patient admitted to for treatment of alcohol dependence. Consultation ordered as patient is experiencing difficulty sleeping. ROS: Patient is alert +oriented X3. Current Medications: Active Medications Generic Name Dose Route Start Last Admin Trade Name Freq PRN Reason Stop Dose Admin Acetaminophen 650 mg 11/25/19 15:59 11/30/19 21:56 Tylenol - PO 650 mg Q4H PRN Administration FEVER Al Hydroxide/Mg Hydroxide 30 ml 11/25/19 15:59 Mylanta Oral Suspension - PO Q6H PRN DYSPEPSIA Amlodipine Besylate 5 mg 11/26/19 10:00 12/01/19 10:42 Norvasc - PO 5 mg DAILY MINNA Administration Atorvastatin Calcium 20 mg 11/25/19 22:00 12/01/19 21:28 Lipitor - PO 20 mg HS MINNA Administration Eucalyptus/Menthol/Phenol/Sorbitol 1 each 11/25/19 15:59 Cepastat Lozenge - MM Q4H PRN SORE THROAT Guaifenesin 10 ml 11/25/19 15:59 12/02/19 04:40 Robitussin - PO 10 ml Q6H PRN Administration COUGH Hydroxyzine Pamoate 25 mg 11/25/19 15:59 12/01/19 21:31 Vistaril - PO 25 mg Q4H PRN Administration ANXIETY Ibuprofen 400 mg 11/25/19 15:59 12/02/19 07:09 Motrin - PO 400 mg Q6H PRN Administration Pain Level 4-6 Loperamide HCl 4 mg 11/25/19 15:59 Imodium - PO Q6H PRN DIARRHEA Magnesium Citrate 300 ml 11/25/19 15:59 Citroma - PO Q48H PRN CONSTIPATION Magnesium Hydroxide 30 ml 11/25/19 15:59 Milk Of Magnesia - PO DAILY PRN CONSTIPATION Melatonin 10 mg 12/01/19 22:00 12/01/19 21:29 Melatonin PO 10 mg HS MINNA Administration Methocarbamol 500 mg 11/25/19 16:04 12/02/19 07:09 Robaxin - PO 500 mg TID PRN Administration MUSCLE SPASMS Pantoprazole Sodium 40 mg 12/02/19 10:00 Protonix - PO DAILY MINNA Multivit/Folic Acid/Iron 1 tab 11/26/19 10:00 12/01/19 10:42 Vitamins (Sjr) - PO 1 tab DAILY MINNA Administration Pseudoephedrine/Triprolidine 1 combo 11/25/19 15:59 Actifed - PO TID PRN NASAL CONGESTION Thiamine HCl 100 mg 11/25/19 22:00 12/01/19 21:29 Vitamin B1 - PO 100 mg HS MINNA Administration Medication(s) Change(s): Yes. Will order Belsomra 10mg HS PRN. Current Side Effect: No Lab tests ordered: No Lab tests reviewed: Yes Provider note:: Patient reports poor sleep. Medications reviewed. Will order Belsomra 10mg HS PRN. Patient also educated on the importance of proper sleep hygiene. Benefits and side effects discussed. Verbal consent given. Total face to face time:: 15 Mental Status Exam - Mental Status Exam Alert and Oriented to: Time, Place, Person Cognitive Function: Good Patient Appearance: Well Groomed Mood: Withdrawn Affect: Appropriate Patient Behavior: Fatigued, Cooperative Speech Pattern: Appropriate Voice Loudness: Normal Thought Process: Intact, Goal Oriented Thought Disorder: Not Present Hallucinations: Denies Suicidal Ideation: Denies Homicidal Ideation: Denies Insight/Judgement: Poor Sleep: Poorly Appetite: Fair Muscle strength/Tone: Normal Gait/Station: Normal Psychiatric Treatment Plan - Problem List (1) Alcohol use disorder Current Visit: Yes (2) History of depression Current Visit: Yes Comment: Currently in OPD follow-up at [facility]. (3) Insomnia Current Visit: Yes (4) Substance induced mood disorder Current Visit: Yes
[2019-12-02] MEDS: PRENATAL VITAMINS W/ FOLIC ACID TABLET (FP) PO SCH (10:47)
[2019-12-02] MEDS: amLODIPine BESYLATE 5 MG TABLET (FP) PO SCH (10:47)
[2019-12-02] MEDS: PANTOPRAZOLE 40 MG TABLET PO SCH (10:47)
[2019-12-02] MEDS: ACETAMINOPHEN 325 MG TABLET (FP) PO PRN (10:49)
[2019-12-02] MEDS: ATORVASTATIN CA 20 MG TABLET (FP) PO SCH (21:39)
[2019-12-02] MEDS: MELATONIN 5 MG TABLETS PO SCH (21:39)
[2019-12-02] MEDS: THIAMINE HCL 100 MG TABLET (FP) PO SCH (21:40)
[2019-12-02] MEDS: SUVOREXANT 10 MG TABLET PO PRN (21:42)
[2019-12-03] MEDS: guaiFENesin 200 MG/10 ML 10 ML UNIT-DOSE CUPS PO PRN ×3 (04:03→21:32)
[2019-12-03] MEDS: METHOCARBAMOL 500 MG TABLET PO PRN ×2 (09:19→21:32)
[2019-12-03] MEDS: PRENATAL VITAMINS W/ FOLIC ACID TABLET (FP) PO SCH (09:19)
[2019-12-03] MEDS: IBUPROFEN 400 MG TABLET (FP) PO PRN ×2 (09:19→21:32)
[2019-12-03] MEDS: PANTOPRAZOLE 40 MG TABLET PO SCH (09:19)
[2019-12-03] MEDS: amLODIPine BESYLATE 5 MG TABLET (FP) PO SCH (09:19)
[2019-12-03] MEDS: THIAMINE HCL 100 MG TABLET (FP) PO SCH (21:32)
[2019-12-03] MEDS: hydrOXYzine PAMOATE 25 MG CAPSULE (FP) PO PRN (21:33)
[2019-12-03] MEDS: ATORVASTATIN CA 20 MG TABLET (FP) PO SCH (21:33)
[2019-12-03] MEDS: SUVOREXANT 10 MG TABLET PO PRN (21:33)
[2019-12-03] MEDS: MELATONIN 5 MG TABLETS PO SCH (22:46)
[2019-12-04] MEDS: IBUPROFEN 400 MG TABLET (FP) PO PRN ×3 (06:32→21:21)
[2019-12-04] MEDS: guaiFENesin 200 MG/10 ML 10 ML UNIT-DOSE CUPS PO PRN ×3 (06:33→21:20)
[2019-12-04] MEDS: METHOCARBAMOL 500 MG TABLET PO PRN ×3 (06:33→21:20)
[2019-12-04] MEDS: amLODIPine BESYLATE 5 MG TABLET (FP) PO SCH (09:40)
[2019-12-04] MEDS: PANTOPRAZOLE 40 MG TABLET PO SCH (09:40)
[2019-12-04] MEDS: PRENATAL VITAMINS W/ FOLIC ACID TABLET (FP) PO SCH (09:40)
[2019-12-04] MEDS: hydrOXYzine PAMOATE 25 MG CAPSULE (FP) PO PRN (21:21)
[2019-12-04] MEDS: ATORVASTATIN CA 20 MG TABLET (FP) PO SCH (21:21)
[2019-12-04] MEDS: SUVOREXANT 10 MG TABLET PO PRN (21:21)
[2019-12-04] MEDS: MELATONIN 5 MG TABLETS PO SCH (21:21)
[2019-12-04] MEDS: THIAMINE HCL 100 MG TABLET (FP) PO SCH (21:21)
[2019-12-05] MEDS: PANTOPRAZOLE 40 MG TABLET PO SCH (10:18)
[2019-12-05] MEDS: amLODIPine BESYLATE 5 MG TABLET (FP) PO SCH (10:18)
[2019-12-05] MEDS: guaiFENesin 200 MG/10 ML 10 ML UNIT-DOSE CUPS PO PRN ×2 (10:18→21:47)
[2019-12-05] MEDS: METHOCARBAMOL 500 MG TABLET PO PRN ×2 (10:18→21:46)
[2019-12-05] MEDS: PRENATAL VITAMINS W/ FOLIC ACID TABLET (FP) PO SCH (10:18)
[2019-12-05] MEDS: ACETAMINOPHEN 325 MG TABLET (FP) PO PRN (10:19)
[2019-12-05] MEDS: ATORVASTATIN CA 20 MG TABLET (FP) PO SCH (21:46)
[2019-12-05] MEDS: MELATONIN 5 MG TABLETS PO SCH (21:46)
[2019-12-05] MEDS: IBUPROFEN 400 MG TABLET (FP) PO PRN (21:46)
[2019-12-05] MEDS: THIAMINE HCL 100 MG TABLET (FP) PO SCH (21:46)
[2019-12-06] MEDS: METHOCARBAMOL 500 MG TABLET PO PRN ×2 (10:19→21:26)
[2019-12-06] MEDS: PANTOPRAZOLE 40 MG TABLET PO SCH (10:19)
[2019-12-06] MEDS: ACETAMINOPHEN 325 MG TABLET (FP) PO PRN ×2 (10:19→21:27)
[2019-12-06] MEDS: amLODIPine BESYLATE 5 MG TABLET (FP) PO SCH (10:19)
[2019-12-06] MEDS: PRENATAL VITAMINS W/ FOLIC ACID TABLET (FP) PO SCH (10:20)
[2019-12-06] MEDS: guaiFENesin 200 MG/10 ML 10 ML UNIT-DOSE CUPS PO PRN ×2 (10:22→21:26)
[2019-12-06] MEDS: THIAMINE HCL 100 MG TABLET (FP) PO SCH (21:26)
[2019-12-06] MEDS: ATORVASTATIN CA 20 MG TABLET (FP) PO SCH (21:26)
[2019-12-06] MEDS: hydrOXYzine PAMOATE 25 MG CAPSULE (FP) PO PRN (21:26)
[2019-12-06] MEDS: MELATONIN 5 MG TABLETS PO SCH (21:28)
[2019-12-06] MEDS ORDERED: SUVOREXANT 10 MG TABLET PO PRN (22:00)
[2019-12-07] MEDS: IBUPROFEN 400 MG TABLET (FP) PO PRN (07:46)
[2019-12-07] MEDS: PRENATAL VITAMINS W/ FOLIC ACID TABLET (FP) PO SCH (10:35)
[2019-12-07] MEDS: PANTOPRAZOLE 40 MG TABLET PO SCH (10:35)
[2019-12-07] MEDS: amLODIPine BESYLATE 5 MG TABLET (FP) PO SCH (10:35)
[2019-12-07] MEDS: ACETAMINOPHEN 325 MG TABLET (FP) PO PRN (10:37)
[2019-12-07] MEDS: METHOCARBAMOL 500 MG TABLET PO PRN ×2 (10:37→21:51)
[2019-12-07] MEDS: guaiFENesin 200 MG/10 ML 10 ML UNIT-DOSE CUPS PO PRN ×2 (10:37→21:52)
[2019-12-07] MEDS: ATORVASTATIN CA 20 MG TABLET (FP) PO SCH (21:50)
[2019-12-07] MEDS: MELATONIN 5 MG TABLETS PO SCH (21:51)
[2019-12-07] MEDS: hydrOXYzine PAMOATE 25 MG CAPSULE (FP) PO PRN (21:51)
[2019-12-07] MEDS: THIAMINE HCL 100 MG TABLET (FP) PO SCH (21:51)
[2019-12-08] MEDS: METHOCARBAMOL 500 MG TABLET PO PRN ×2 (03:32→21:22)
[2019-12-08] MEDS: IBUPROFEN 400 MG TABLET (FP) PO PRN (03:33)
[2019-12-08] MEDS: amLODIPine BESYLATE 5 MG TABLET (FP) PO SCH (10:38)
[2019-12-08] MEDS: PANTOPRAZOLE 40 MG TABLET PO SCH (10:39)
[2019-12-08] MEDS: PRENATAL VITAMINS W/ FOLIC ACID TABLET (FP) PO SCH (10:39)
[2019-12-08] MEDS: guaiFENesin 200 MG/10 ML 10 ML UNIT-DOSE CUPS PO PRN (21:22)
[2019-12-08] MEDS: MELATONIN 5 MG TABLETS PO SCH (21:22)
[2019-12-08] MEDS: THIAMINE HCL 100 MG TABLET (FP) PO SCH (21:22)
[2019-12-08] MEDS: ATORVASTATIN CA 20 MG TABLET (FP) PO SCH (21:22)
[2019-12-09] MEDS: amLODIPine BESYLATE 5 MG TABLET (FP) PO SCH (10:32)
[2019-12-09] MEDS: PANTOPRAZOLE 40 MG TABLET PO SCH (10:32)
[2019-12-09] MEDS: PRENATAL VITAMINS W/ FOLIC ACID TABLET (FP) PO SCH (10:32)
[2019-12-09] MEDS ORDERED: MECLIZINE HCL 25 MG TABLET (FP) PO PRN (11:51)
--- NOTE | 2019-12-09 12:02 | PN ---
[facility] Progress Note Note: Pt c/o dizziness especially when lying on his left side and on his back. Reports hx of vertigo and takes medication for it which he reports he has at home. On review of pt's home meds on outside pharmacy website showed pt's last posting for Meclizine 25 mg po BID PRN- 60 tabs for 30 days was 09/03/19. Pt denies n/v/d but reports he received MOM with good effect. Denies headache at this time but reports had one earlier. Vital Signs - 24 hr 12/08/19 12/08/19 12/09/19 15:50 22:48 00:30 Temperature Pulse Rate Respiratory 18 Rate Blood Pressure O2 Sat by Pulse 97 97 Oximetry (%) 12/09/19 12/09/19 07:24 09:56 Temperature 97.9 F Pulse Rate 87 93 H Respiratory 18 20 Rate Blood Pressure 125/77 140/80 O2 Sat by Pulse 97 Oximetry (%) Alert o x 3 nad oob ambulating with steady gait. Heent:Normocephalic,eomi,chel, neck:supple,no JVD,AROM A/P Hx Vertigo Maintain safety increase po fluids as tolerated Reorder Meclizine 25 mg po BID PRN
[2019-12-09] MEDS: MECLIZINE HCL 25 MG TABLET (FP) PO PRN ×2 (12:49→21:47)
[2019-12-09] MEDS: MELATONIN 5 MG TABLETS PO SCH (21:45)
[2019-12-09] MEDS: THIAMINE HCL 100 MG TABLET (FP) PO SCH (21:46)
[2019-12-09] MEDS: ATORVASTATIN CA 20 MG TABLET (FP) PO SCH (21:46)
[2019-12-09] MEDS: METHOCARBAMOL 500 MG TABLET PO PRN (21:46)
[2019-12-09] MEDS ORDERED: SUVOREXANT 10 MG TABLET PO PRN (22:00)
[2019-12-09] MEDS ORDERED: MECLIZINE HCL 25 MG TABLET (FP) PO SCH (22:00)
[2019-12-10] MEDS: PANTOPRAZOLE 40 MG TABLET PO SCH (10:22)
[2019-12-10] MEDS: amLODIPine BESYLATE 5 MG TABLET (FP) PO SCH (10:22)
[2019-12-10] MEDS: PRENATAL VITAMINS W/ FOLIC ACID TABLET (FP) PO SCH (10:22)
[2019-12-10] MEDS: MECLIZINE HCL 25 MG TABLET (FP) PO PRN ×2 (10:23→21:49)
--- NOTE | 2019-12-10 15:19 | DS ---
[facility] Rehab Discharge Summary - [facility] Rehab Discharge Summary Admission Date: 11/25/19 Discharge Date: 12/11/19 - History Present History: Alcohol dependence Additional Comments: Pt is a 59 y/o old male with a hx of MERLENE admitted to rehab and scheduled to discharge on 12/11/19. Pt has a primary care provider Dr. Perkins on [address] [place] [address]. Pertinent Past History: HTN HLD Vertigo Gout Chronic LBP GERD Mood Disorder - Discharge Physical Exam Vital Signs: Vital Signs Temperature 98.3 F 12/10/19 08:04 Pulse Rate 86 12/10/19 10:00 Respiratory Rate 18 12/10/19 08:04 Blood Pressure 114/67 12/10/19 10:00 O2 Sat by Pulse Oximetry (%) 96 12/10/19 06:00 Alert o x 3,denies s/h/i nad oob ambulating with steady gait cardiac:s1 s2,rrr lungs:cta,sarahi. abdomen:+bs,nt,nd extremities/skin:no edema;dry,warm,intact. Pertinent Admission Physical Exam Findings: Stbla and unchanged from detox - Treatment Discharge Condition: Discharge condition good Hospital Course: [facility] - Medication Discharge Medications: Ambulatory Orders Amlodipine Besylate 5 mg PO DAILY 05/14/18 Atorvastatin Ca [Lipitor] 20 mg PO HS 05/14/18 Cyclobenzaprine HCl [Flexeril 10 mg] 10 mg PO BID PRN 05/14/18 Ergocalciferol (Vitamin D2) [Vitamin D2] 50,000 unit PO Q7D 05/14/18 Ibuprofen [Motrin -] 400 mg PO TID PRN 05/14/18 Meclizine HCl [Antivert -] 25 mg PO TID PRN 05/14/18 Omeprazole 20 mg PO DAILY 28 Days #28 tablet. 12/10/19 - Medication-Assisted Treatment (MAT) Medication-Assisted Treatment (MAT): No - Discharge Instructions Diet, activity, other medical instructions: Diet:ALIYA Activity: oob ad brenda Other medical instructions:follow up with Cd aftercare as recommended and scheduled. follow up with primarye care provider for medical management within 1 week after discharge. - Diagnosis (1) Alcohol use disorder Current Visit: Yes Status: Chronic (2) Chronic LBP Current Visit: Yes Status: Chronic Qualifiers: Back pain laterality: unspecified (3) HTN (hypertension) Current Visit: Yes Status: Chronic Qualifiers: Hypertension type: essential hypertension Qualified Code(s): I10 - Essential (primary) hypertension (4) Gout Current Visit: Yes Status: Resolved Qualifiers: Gout site: unspecified site (5) Hypercholesterolemia Current Visit: Yes Status: Chronic - Follow-up Referral Minutes to complete discharge: 30 - AMA Did Patient Leave Against Medical Advice: No Additional Comments: Pt reports he has all his medications at home except omeprazole. Same electronically sent to [facility] for [facility]er.
[2019-12-10] MEDS: ATORVASTATIN CA 20 MG TABLET (FP) PO SCH (21:47)
[2019-12-10] MEDS: MELATONIN 5 MG TABLETS PO SCH (21:48)
[2019-12-10] MEDS: METHOCARBAMOL 500 MG TABLET PO PRN (21:49)
[2019-12-10] MEDS: THIAMINE HCL 100 MG TABLET (FP) PO SCH (21:49)
[2019-12-11] MEDS: METHOCARBAMOL 500 MG TABLET PO PRN (04:10)
[2019-12-11] MEDS: IBUPROFEN 400 MG TABLET (FP) PO PRN (04:11)
[2019-12-11] MEDS: MECLIZINE HCL 25 MG TABLET (FP) PO PRN ×2 (04:11→10:04)
[2019-12-11 07:24] VITALS: BP 107/70; PULSE 81; TEMP 97.8
--- NOTE | 2019-12-11 09:54 | PN ---
S Progress Note Note: Pt is discharged today as scheduled. pt was reminded to follow up with CD aftercare as recommended. Vital Signs - 24 hr 12/10/19 12/10/19 12/10/19 10:00 16:03 20:49 Temperature Pulse Rate 86 Respiratory Rate Blood Pressure 114/67 O2 Sat by Pulse 95 98 Oximetry (%) 12/11/19 12/11/19 12/11/19 00:30 03:30 07:23 Temperature 97.8 F Pulse Rate 81 Respiratory 18 18 18 Rate Blood Pressure 107/70 O2 Sat by Pulse 95 Oximetry (%) Alert o x 4 nad oob ambulating with steady gait A/P Medically stable D/c today follow up with Cd aftercare at Counts include 234 beds at the [facility] as recommended Pt reminded of the need and ways to stay safe in light of the Coronavirus pandemic.
[2019-12-11] MEDS: amLODIPine BESYLATE 5 MG TABLET (FP) PO SCH (10:02)
[2019-12-11] MEDS: PRENATAL VITAMINS W/ FOLIC ACID TABLET (FP) PO SCH (10:02)
[2019-12-11] MEDS: PANTOPRAZOLE 40 MG TABLET PO SCH (10:02)
[2019-12-11] MEDS: guaiFENesin 200 MG/10 ML 10 ML UNIT-DOSE CUPS PO PRN (10:04)
== END 2019-12-11 10:10 | disposition home or self-care (01) | DRG 772 ==
LOC: YASAS 15:00 → Y5N 15:01
PROVIDERS: ADMIT Allergy & Immunology; ATTEND Allergy & Immunology
PROC: HZ42ZZZ Group Counseling for Substance Abuse Treatment, Cognitive-Behavioral (ICD-10-PCS; principal; 2019-11-25)
DX: F10.20 Alcohol dependence, uncomplicated (principal); F19.24 Other psychoactive substance dependence with psychoactive substance-induced mood disorder; F32.9 Major depressive disorder, single episode, unspecified; I10 Essential (primary) hypertension; E78.5 Hyperlipidemia, unspecified; G47.00 Insomnia, unspecified; K21.9 Gastro-esophageal reflux disease without esophagitis; M10.9 Gout, unspecified; M54.5 Low back pain; G89.29 Other chronic pain; R42 Dizziness and giddiness; Z87.09 Personal history of other diseases of the respiratory system

== ENCOUNTER 2021-02-20 10:54 | Day surgery (SDC) | payer OTHER ==
[2021-02-20] MEDS ORDERED: FERRIC CARBOXYMALTOSE 750 MG in SODIUM CHLORIDE 250 ML IVPB ONE (11:30)
[2021-02-20 12:57] VITALS: BP 120/68; PULSE 70; TEMP 98.2
== END 2021-02-20 15:29 | disposition home or self-care (01) ==
LOC: FINFUSION 10:54 → FM/S 10:56 → FINFUSION 15:29
PROVIDERS: ATTEND Nurse Practitioner Adult Health
PROC: 3E033GC Introduction of Other Therapeutic Substance into Peripheral Vein, Percutaneous Approach (ICD-10-PCS; principal; 2021-02-20)
DX: D50.9 Iron deficiency anemia, unspecified (principal)
CPT/HCPCS: 96365; J1439

== ENCOUNTER 2021-02-27 11:18 | Day surgery (SDC) | payer OTHER ==
[2021-02-27] MEDS ORDERED: FERRIC CARBOXYMALTOSE 750 MG in SODIUM CHLORIDE 250 ML IVPB ONE (12:00)
[2021-02-27 12:07] VITALS: TEMP 98.7
[2021-02-27 13:06] VITALS: BP 128/66; PULSE 74
== END 2021-02-27 13:12 | disposition home or self-care (01) ==
LOC: FINFUSION 11:18 → FM/S 11:26 → FINFUSION 13:12
PROVIDERS: ATTEND Nurse Practitioner Adult Health
PROC: 3E033GC Introduction of Other Therapeutic Substance into Peripheral Vein, Percutaneous Approach (ICD-10-PCS; principal; 2021-02-27)
DX: D50.9 Iron deficiency anemia, unspecified (principal)
CPT/HCPCS: 96365; J1439